=== PATIENT | female | born 1970 | race Caucasian/White ===

== ENCOUNTER 2021-11-12 05:43 | Observation (INO) | payer BC ==
[2021-11-09 12:28] LABS: BASOPHILS # (AUTO) 0.1 X10'3 (0-0.2); BASOPHILS % (AUTO) 0.7 % (0-1); EOSINOPHILS # (AUTO) 0.3 X10'3 (0-0.9); EOSINOPHILS % (AUTO) 2.9 % (0-6); MEAN CORPUSCULAR HEMOGLOBIN 28.9 PG (27.0-31.0); MEAN CORPUSCULAR HGB CONC 33.5 g/dL (33.0-36.5); MEAN CORPUSCULAR VOLUME 86.2 FL (78-98); MEAN PLATELET VOLUME 9.8 FL (7.4-10.4); MONOCYTES # (AUTO) 0.5 X10'3 (0-0.9); MONOCYTES % (AUTO) 5.5 % (2-12); NEUTROPHILS # (AUTO) 6.3 X10'3 (1.8-7.7); NEUTROPHILS % (AUTO) 68.9 % (42-75); PRE OP HEMATOCRIT 46.3 % (35.0-45.0); PRE OP HEMOGLOBIN 15.5 g/dL (12.0-16.0); PRE OP PLATELET COUNT 247 X10'3 (140-440); RED BLOOD COUNT 5.37 X10'6 (4.20-5.60); RED CELL DISTRIBUTION WIDTH 13.4 % (11.5-14.5)
[2021-11-09 12:49] LABS: ALBUMIN 4.2 G/DL (3.4-5.0); ALBUMIN/GLOBULIN RATIO 1.3 (1.1-1.5); ALKALINE PHOSPHATASE 84 IU/L (46-116); BLOOD UREA NITROGEN 8 MG/DL (7-18); BUN/CREATININE RATIO 11.6 (6.6-38.0); CALCIUM 9.1 MG/DL (8.5-10.1); CHLORIDE 102 MMOL/L (99-107); CREATININE 0.69 MG/DL (0.40-0.90); PRE OP ALT 21 U/L (30-65); PRE OP ANION GAP 6 (8-16); PRE OP AST 11 U/L (10-37); PRE OP BILIRUB, TOTAL 0.5 MG/DL (0.0-1.0); PRE OP GLUCOSE 90 MG/DL (70-104); PRE OP POTASSIUM 4.3 MMOL/L (3.4-5.1); PRE OP SODIUM 137 MMOL/L (135-145); TOTAL CARBON DIOXIDE 29.4 MMOL/L (24-32); TOTAL PROTEIN 7.5 G/DL (6.4-8.2); eGFR 90 ML/MIN
[2021-11-09 13:09] LABS: HCG SERUM QL NEGATIVE
[~2021-11-12] VITALS: Ht 172.7 cm; Wt 89.4 kg
[2021-11-12] VITALS (29 sets, daily range): BP systolic 115–144; BP diastolic 66–91
[~2021-11-12 05:43] MED LIST: ESTR50GE VG; PHEN15CA6 PO; TRIA10.8 BOTHNARES; ceFOXitin 2GM-NS 100mL ADDvant 100 ML IV ONE; famotidine 20mg tablet PO ONE
[2021-11-12] MEDS ORDERED: BUPIVAcaine/PF 5 mg/ml 10ml ONE (06:49)
[2021-11-12] MEDS ORDERED: clindamycin phosphate 40gm vag cream ONE (06:49)
[2021-11-12] MEDS ORDERED: LIDOCAINE 1%/EPI 1:100,000 inj. 10 ML multi-dose vial ONE ×2 (06:49→06:52)
[2021-11-12] MEDS ORDERED: ceFAZolin 1000mg inj ONE (06:49)
[2021-11-12] MEDS ORDERED: aprepitant 40mg capsule PO ONE (07:25)
[2021-11-12] MEDS: ringers solution, lacted 1,000 ML IV SCH ×5 (07:31→18:45)
[2021-11-12] MEDS ORDERED: propofol inj 20 ML IV ONE (07:31)
[2021-11-12] MEDS ORDERED: midazolam 1 mg/ML 2ml injection ONE (07:31)
[2021-11-12] MEDS ORDERED: fentaNYL /PF 50mcg/ml 5ml ampule ONE (07:31)
[2021-11-12] MEDS ORDERED: LIDOcaine 1%/PF 5ML 10 MG/ML VIAL ONE (07:31)
[2021-11-12] MEDS ORDERED: ondansetron/PF 4mg/2ml inj IV PRN ×2 (07:45→10:45)
[2021-11-12] MEDS ORDERED: meperidine/PF 25mg/ml syringe IV PRN ×3 (07:45)
[2021-11-12] MEDS ORDERED: proCHLORperazine 10 MG/2 ml inj IV PRN (07:45)
[2021-11-12] MEDS ORDERED: morphine 4 MG/ML inj SYRINge IV PRN (07:45)
[2021-11-12] MEDS ORDERED: morphine 2 MG/ML inj. syringe IV PRN (07:45)
[2021-11-12] MEDS ORDERED: ringers solution, lacted 1,000 ML IV SCH (07:45)
[2021-11-12] MEDS ORDERED: sevoflurane 250ml liquid IH ONE (07:47)
[2021-11-12] MEDS ORDERED: glycopyrrolate 0.2mg/ml inj ONE (07:47)
[2021-11-12] MEDS ORDERED: ondansetron/PF 4mg/2ml inj ONE (07:47)
[2021-11-12] MEDS ORDERED: rocuronium 10mg/ml inj IV ONE (07:57)
[2021-11-12] MEDS ORDERED: dexamethasone sod phosphate 4mg/ml inj. ONE (08:05)
[2021-11-12] MEDS ORDERED: meperidine/PF 25mg/ml syringe ONE (10:10)
[2021-11-12] MEDS ORDERED: mag hydrox/Alum hydrox/simeth 30ml oral suspension PO PRN (10:45)
[2021-11-12] MEDS ORDERED: naloxone 0.4 mg/ml inj IV PRN (10:45)
[2021-11-12] MEDS ORDERED: diphenhydrAMINE 50 mg/ml inj IV PRN (10:45)
[2021-11-12] MEDS ORDERED: LORazepam 2 mg/ml vial IV PRN (10:45)
[2021-11-12] MEDS ORDERED: oxyCODONE/APAP 5-325mg tablet PO PRN ×2 (10:45)
[2021-11-12] MEDS ORDERED: normal saline 500ML IV soln IV PRN (10:45)
[2021-11-12] MEDS ORDERED: temazepam 15mg capsule PO PRN (10:45)
--- NOTE | 2021-11-12 10:57 | NUR ---
Received from OR via BED, accompanied by Anesthesiologist DR SEPULVEDA and report given by Anesthesiologist AND CHIEF KNOWLEDGE OFFICER. PT VERY DROWSY, NO S/S OF DISTRESS/DISCOMFORT, ABDOMEN W/3 LAP SITES W/DERMABOND CDI, DEEPTHI PAD IN PLACE NO DRAINAGE, BARRIENTOS CATHETER TO GRAVITY DRAINAGE W/LIGHT YELLOW URINE IN DRAINAGE BAG. Addendum: 11/12/21 at 1121 by Nida Dugan RN Amended: Links added.
[2021-11-12] MEDS ORDERED: acetaminophen 1,000mg/100ml IV 100 ML IV ONE (11:50)
[2021-11-12] MEDS: ketorolac trometh. 30mg/ml inj. IV PRN ×2 (12:04→17:53)
--- NOTE | 2021-11-12 13:00 | NUR ---
Received report from Nida PANTOJA and awaiting patients arrival
--- NOTE | 2021-11-12 13:27 | NUR ---
Report called to receiving nurse. Transferred via BED, 1 BAG OF PERSONAL Belongings, 1 HOSPITAL BAG SENT W/PT TO ROOM 4020A. RECEIVING RN AT BEDSIDE TO RECEIVE PT. BLL, CALL LIGHT GIVEN, SIDE RAILS UP X 2. Special Issues communicated to receiving nurse. YES. Addendum: 11/12/21 at 1336 by Nida Dugan RN Amended: Links added.
--- NOTE | 2021-11-12 13:30 | NUR ---
Received patient into room in stable condition. Cuello draining clear yellowish urine. Small amount of pinkish drainage vaginally. Ambulated x1 to BR, but felt very weak and returned to bed. VSS. Toradol and percocet given alternatively for pain 7/10 with good effect. in room.
[2021-11-12] MEDS: simethicone 80mg chew tab PO SCH ×2 (14:21→17:53)
--- NOTE | 2021-11-12 18:40 | NUR ---
Patient in room ORTHO 4020. I have received report from Inga PANTOJA and had the opportunity to ask questions and assume patient care.
--- NOTE | 2021-11-12 18:58 | NUR ---
Problems reprioritized. Patient report given, questions answered & plan of care reviewed with Kim PANTOJA.
[2021-11-12] MEDS: docusate sod 100mg capsule PO SCH (19:58)
[2021-11-13] MEDS: ketorolac trometh. 30mg/ml inj. IV PRN ×2 (00:33→07:21)
[2021-11-13] MEDS: ringers solution, lacted 1,000 ML IV SCH (02:45)
[2021-11-13 06:00] VITALS: BP 113/51
--- NOTE | 2021-11-13 06:00 | NUR ---
Physical assessment checked and I agree with
--- NOTE | 2021-11-13 06:51 | NUR ---
Problems reprioritized. Patient report given, questions answered & plan of care reviewed with Maddie PANTOJA.
[2021-11-13] MEDS: docusate sod 100mg capsule PO SCH (07:29)
[2021-11-13] MEDS: simethicone 80mg chew tab PO SCH (07:29)
[2021-11-13 08:06] LABS: BASOPHILS % (AUTO) 0.2 % (0-1); EOSINOPHILS % (AUTO) 0 % (0-6); HEMATOCRIT 40.8 % (35.0-45.0); HEMOGLOBIN 13.8 g/dl (12.0-16.0); LYMPHOCYTES # (AUTO) 1.3 X10'3 (1.1-4.8); LYMPHOCYTES % (AUTO) 10.1 % (21-51); MEAN CORPUSCULAR HEMOGLOBIN 29.2 PG (27.0-31.0); MEAN CORPUSCULAR HGB CONC 33.8 g/dL (33.0-36.5); MEAN CORPUSCULAR VOLUME 86.3 FL (78-98); MEAN PLATELET VOLUME 10.9 FL (7.4-10.4); MONOCYTES # (AUTO) 0.8 X10'3 (0-0.9); MONOCYTES % (AUTO) 5.7 % (2-12); NEUTROPHILS # (AUTO) 11.1 X10'3 (1.8-7.7); PLATELET COUNT 247 X10'3 (140-440); RED BLOOD COUNT 4.73 X10'6 (4.20-5.60); RED CELL DISTRIBUTION WIDTH 13.4 % (11.5-14.5); WHITE BLOOD COUNT 13.2 X10'3 (4.5-11.0)
[2021-11-13 08:47] LABS: ALBUMIN 3.8 G/DL (3.4-5.0); ANION GAP 7 (8-16); BLOOD UREA NITROGEN 6 MG/DL (7-18); BUN/CREATININE RATIO 8.1 (6.6-38.0); CALCIUM 8.7 MG/DL (8.5-10.1); CHLORIDE 105 MMOL/L (99-107); CREATININE 0.74 MG/DL (0.40-0.90); GLUCOSE 100 MG/DL (70-104); POTASSIUM 3.7 MMOL/L (3.5-5.1); SODIUM 140 MMOL/L (135-145); TOTAL CARBON DIOXIDE 28.2 MMOL/L (24-32); eGFR 83 ML/MIN
[2021-11-13 10:00] VITALS: BP 114/54
[2021-11-13] MEDS ORDERED: ibuprofen tablet 400 MG TABLET PO ONE (11:52)
[2021-11-13 14:00] VITALS: BP 130/60
--- NOTE | 2021-11-13 15:00 | NUR ---
Pt had multiple voids of less than 150cc with post void bladder scannings reaching amounts between 289 and 468. Pt agrees to FC for home as ordered by Dr. Damian.
--- NOTE | 2021-11-13 15:30 | NUR ---
Cuello catheter placed per MD order. Pt tolerated well. Pt was instructed in FC care and written teaching provided.
--- NOTE | 2021-11-13 16:00 | NUR ---
PIV discontinued, site clear, gauze and tape applied. Cannula intact.
== END 2021-11-13 16:20 | disposition home or self-care (01) ==
LOC: UNDOADMOB 05:43 → PAS 05:43 → PAS IN 05:43 → EDSTATUS 07:30 → PAS IN 10:52 → ORTHO 4S 13:25
PROVIDERS: ADMIT Obstetrics & Gynecology; ATTEND Obstetrics & Gynecology
DX: N81.4 Uterovaginal prolapse, unspecified (principal); Z20.822 Contact with and (suspected) exposure to COVID-19; N92.0 Excessive and frequent menstruation with regular cycle; N39.3 Stress incontinence (female) (male); K66.0 Peritoneal adhesions (postprocedural) (postinfection); K21.9 Gastro-esophageal reflux disease without esophagitis; Z79.899 Other long term (current) drug therapy
CPT/HCPCS: 36415; 51992; 57260; 58552; 80048; 80053; 82948; 84703; 85025; 86885; 86900; 86901; 87081; 87811; 96374; 96375; 96376; C1758; C1771; G0378; J0131; J0690; J0694; J1100; J1885; J2175; J2250; J2405; J2704; J3010; J3490; J7120; J8501; A4314; A4355; A4615; A4618; A6250; A6407; A7000

== ENCOUNTER 2024-06-13 21:45 | Emergency (ER) | payer BC ==
[~2024-06-13] VITALS: Ht 170.2 cm; Wt 93.2 kg
[~2024-06-13 21:45] MED LIST changes: -ceFOXitin 2GM-NS 100mL ADDvant 100 ML IV ONE; -famotidine 20mg tablet PO ONE
[2024-06-13 22:10] LABS: BASOPHILS % (AUTO) 0.2 % (0-1); EOSINOPHILS # (AUTO) 0.1 X10'3 (0-0.9); EOSINOPHILS % (AUTO) 0.7 % (0-6); HEMOGLOBIN 15.4 g/dl (12.0-16.0); LYMPHOCYTES % (AUTO) 16.5 % (21-51); MEAN CORPUSCULAR HEMOGLOBIN 28.3 PG (27.0-31.0); MEAN CORPUSCULAR HGB CONC 33.5 g/dL (33.0-36.5); MEAN CORPUSCULAR VOLUME 84.5 FL (78-98); MEAN PLATELET VOLUME 8.5 FL (7.4-10.4); MONOCYTES # (AUTO) 0.5 X10'3 (0-0.9); MONOCYTES % (AUTO) 4.3 % (2-12); NEUTROPHILS # (AUTO) 9.6 X10'3 (1.8-7.7); NEUTROPHILS % (AUTO) 78.3 % (42-75); PLATELET COUNT 298 X10'3 (140-440); RED BLOOD COUNT 5.45 X10'6 (4.20-5.60); RED CELL DISTRIBUTION WIDTH 12.7 % (11.5-14.5); WHITE BLOOD COUNT 12.3 X10'3 (4.5-11.0)
[2024-06-13 22:25] LABS: ALANINE AMINOTRANSFERASE 46 U/L (12-78); ALBUMIN 4.2 G/DL (3.4-5.0); ALBUMIN/GLOBULIN RATIO 1.3 (1.1-1.5); ANION GAP 6 (8-16); ASPARTATE AMINO TRANSFERASE 15 U/L (10-37); BILIRUBIN,TOTAL 0.8 MG/DL (0.1-1.0); BLOOD UREA NITROGEN 12 MG/DL (7-18); BUN/CREATININE RATIO 15.8 (10.0-20.0); CALCIUM 9.1 MG/DL (8.5-10.1); CHLORIDE 102 MMOL/L (99-107); CREATININE 0.76 MG/DL (0.40-0.90); GLUCOSE 116 MG/DL (70-104); LIPASE 31 U/L (16-77); POTASSIUM 4.2 MMOL/L (3.5-5.1); SODIUM 138 MMOL/L (135-145); TOTAL CARBON DIOXIDE 29.8 MMOL/L (24-32); TOTAL PROTEIN 7.4 G/DL (6.4-8.2); eCRCL 85 ML/MIN; eGFR 80 ML/MIN
[2024-06-13 22:57] LABS: ALKALINE PHOSPHATASE 77 IU/L (46-116); PRO BRAIN NATRIURETIC PEPTIDE 71 PG/ML (0-125)
[2024-06-14] MEDS: mag hydrox/Alum hydrox/simeth 30ml oral suspension PO ONE (01:34)
[2024-06-14] MEDS: LIDOcaine 2% Viscous 15ml cup MM ONE (01:34)
[2024-06-14] MEDS: ondansetron 4mg rapidly disintigrating tab PO ONE (01:34)
[2024-06-14 01:53] LABS: BILIRUBIN,URINE NEGATIVE (Neg); CLARITY,URINE CLEAR (Clear); COLOR,URINE YELLOW (Yellow); GLUCOSE, URINE NEGATIVE (Neg); KETONES,URINE TRACE mg/dl (Neg); LEUKOCYTE ESTERASE ,URINE NEGATIVE (Neg); NITRITES, URINE NEGATIVE (Neg); OCCULT BLOOD,URINE TRACE-INTACT (Neg); PROTEIN,URINE NEGATIVE (Neg); UROBILINOGEN,URINE 0.2 E.U/dL (0.2-1.0)
[2024-06-14 01:54] LABS: URINE HCG NEGATIVE (NEG)
[2024-06-14 01:59] LABS: UA COLLECTION TYPE CLN CATCH MIDSTREAM
[2024-06-14 02:03] LABS: BACTERIA,URINE 2+ /HPF (Neg); RBC,URINE 0-2 /HPF (0-2); SQUAMOUS EPITHELIAL CELL,UR FEW /LPF (FEW); WBC,URINE 0-4 /HPF (0-4)
[2024-06-14] MEDS: ibuprofen tablet 400 MG TABLET PO ONE (02:29)
[2024-06-14] MEDS: acetaminophen 325mg tablet PO ONE (02:30)
[2024-06-14] MEDS ORDERED: BISA-78 PO (06:02)
[2024-06-14 08:32] VITALS: BP 147/90; PULSE 62; RESP 18; TEMP 98.1; O2SAT 98
== END 2024-06-14 08:35 | disposition home or self-care (01) ==
LOC: ER 21:45
DX: K80.20 Calculus of gallbladder without cholecystitis without obstruction (principal); K59.00 Constipation, unspecified; Z88.5 Allergy status to narcotic agent; Z91.018 Allergy to other foods; Z79.899 Other long term (current) drug therapy
CPT/HCPCS: 36415; 71045; 74176; 76700; 80053; 81001; 81025; 83690; 83880; 84484; 85025; 93005; 99285; A6253